=== PATIENT | female | born 1970 | race Caucasian/White ===

== ENCOUNTER 2019-08-01 11:46 | Inpatient (IN) | payer MEDICARE ==
[~2019-08-01] VITALS: Ht 165.1 cm; Wt 135.6 kg
[2019-08-01] MEDS ORDERED: AMLO10TA7 PO (16:23)
[2019-08-01] MEDS ORDERED: METF-960 PO (16:23)
[2019-08-01] MEDS ORDERED: DULO60CA44 PO (16:23)
[2019-08-01] MEDS ORDERED: CLON1TAB13 PO (16:23)
[2019-08-01] MEDS ORDERED: LEVO150 PO (16:23)
[2019-08-01] MEDS ORDERED: ZIPR20CA2 PO (16:23)
[2019-08-01] MEDS ORDERED: ZOLPIDEM TARTRATE 10 MG TABLET PO PRN (16:30)
[2019-08-01] MEDS ORDERED: HALOPERIDOL 5 MG TABLET PO PRN (16:30)
[2019-08-01 18:00] VITALS: BP 138/82
[2019-08-01] MEDS ORDERED: BACITRACIN 28.4 GM OINTMENT TP PRN (18:30)
[2019-08-01] MEDS ORDERED: CloNIDine HCL 0.1 MG TABLET PO PRN (18:30)
[2019-08-01] MEDS ORDERED: OMEPRAZOLE 20 MG CAPSULE PO PRN (18:30)
[2019-08-01] MEDS ORDERED: MAGNESIUM HYDROXIDE SUSPENSION 30 ML UDCUP PO PRN (18:30)
[2019-08-01] MEDS ORDERED: PETROLATUM,WHITE 28 GM JELLY TP PRN (18:30)
[2019-08-01] MEDS ORDERED: BENZOCAINE/MENTHOL LOZENGE MM PRN (18:30)
[2019-08-01] MEDS ORDERED: DOCUSATE SODIUM 100 MG CAPSULE PO PRN (18:30)
[2019-08-01] MEDS ORDERED: ACETAMINOPHEN 325 MG TABLET PO PRN (18:30)
[2019-08-01] MEDS ORDERED: ALBUTEROL SULFATE HFA 90 MCG/PUFF 8 GM INHALER IH PRN (18:30)
[2019-08-02 06:54] VITALS: BP 139/79
[2019-08-02] MEDS: LEVOTHYROXINE SODIUM 150 MCG TABLET PO SCH (06:59)
[2019-08-02] MEDS: MetFORMIN HCL 500 MG TABLET PO SCH (06:59)
[2019-08-02 07:10] LABS: GLUCOMETER DEV NAME(LOC) BV3S.; GLUCOSE,POINT OF CARE 127 MG/DL (70-110)
[2019-08-02 08:30] LABS: BASOPHILS % (AUTO) 1.1 % (0.0-2.0); EOSINOPHILS % (AUTO) 2.1 % (1.0-6.0); HEMATOCRIT 39.1 % (36-46); HEMOGLOBIN 13.1 g/dL (12.0-16.0); LYMPHOCYTES # (AUTO) 0.7 K/uL (1.0-4.8); LYMPHOCYTES % (AUTO) 16.7 % (22.0-44.0); MEAN CORPUSCULAR HEMOGLOBIN 26.4 pg (26.0-34.0); MEAN CORPUSCULAR HGB CONC 33.5 G/dL (31.0-37.0); MEAN CORPUSCULAR VOLUME 79 fL (80-100); MONOCYTES # (AUTO) 0.5 K/uL (0.1-1.0); MONOCYTES % (AUTO) 11.3 % (2.0-9.0); NEUTROPHILS % (AUTO) 68.8 % (40.0-70.0); PLATELET COUNT (AUTO) 389 K/uL (150-450); RED BLOOD CELL COUNT(AUTO) 4.96 MIL/uL (4.00-5.20); RED CELL DISTRIBUTION WIDTH 16.4 % (11.5-14.5)
[2019-08-02] MEDS: LORazepam 2 MG TABLET PO PRN ×2 (08:33→15:08)
[2019-08-02] MEDS: NICOTINE 21 MG/24 HOUR PATCH TD SCH (08:33)
[2019-08-02] MEDS: NYSTATIN 15 GM POWDER BOTTLE TP SCH ×2 (08:33→16:14)
[2019-08-02] MEDS: AmLODIPine BESYLATE 10 MG TABLET PO SCH (08:33)
[2019-08-02 08:44] VITALS: BP 129/64
[2019-08-02 08:46] LABS: HEMOGLOBIN A1C 5.8 % (4.5-6.2)
[2019-08-02 08:52] LABS: ALANINE AMINOTRANSFERASE 32 U/L (12-78); ALKALINE PHOSPHATASE 120 U/L (46-116); ANION GAP 9 mmol/L (8-16); ASPARTATE AMINOTRANSFERASE 23 U/L (15-37); BILIRUBIN,TOTAL 0.3 mg/dL (0.1-1.0); CARBON DIOXIDE 27 mmol/L (22-29); CHLORIDE 99 mmol/L (98-107); CHOL/HDL RATIO 3.5 (3.9-5.7); CHOLESTEROL 133 mg/dL (131-200); CREATININE 0.75 mg/dL (0.60-1.30); FREE T4 (FREE THYROXINE) 0.97 ng/dL (0.76-1.46); GLOMERULAR FILTR. RATE CALC > 60 mL/min (>60); GLUCOSE,RANDOM 135 mg/dL (70-110); HDL CHOLESTEROL 38 mg/dL (40-60); LDL CHOL (CALC.) 66 mg/dL (0-130); POTASSIUM 4.3 mmol/L (3.5-5.1); SODIUM SERUM 135 mmol/L (136-145); THYROID STIMULATING HORMONE 0.79 uIU/mL (0.36-3.74); TOTAL PROTEIN, SERUM 8.3 g/dL (6.4-8.2); TRIGLYCERIDES 145 mg/dL (15-150); UREA NITROGEN, BLOOD 6 mg/dL (7-18)
[2019-08-02] MEDS: LOPERAMIDE HCL 2 MG CAPSULE PO PRN (13:23)
[2019-08-02] MEDS: ONDANSETRON HCL 4 MG TABLET PO PRN (15:08)
[2019-08-02 15:16] LABS: GLUCOMETER DEV NAME(LOC) BV3S.; GLUCOSE,POINT OF CARE 100 MG/DL (70-110)
[2019-08-02 16:10] LABS: GLUCOMETER DEV NAME(LOC) BV3S.; GLUCOSE,POINT OF CARE 90 MG/DL (70-110)
[2019-08-02 16:12] VITALS: BP 135/85
[2019-08-03 03:13] VITALS: BP 138/94
[2019-08-03] MEDS: LORazepam 2 MG TABLET PO PRN ×2 (03:15→08:47)
[2019-08-03 06:26] LABS: GLUCOMETER DEV NAME(LOC) BV3S.; GLUCOSE,POINT OF CARE 117 MG/DL (70-110)
[2019-08-03] MEDS: ONDANSETRON HCL 4 MG TABLET PO PRN (06:30)
[2019-08-03] MEDS: MetFORMIN HCL 500 MG TABLET PO SCH (07:02)
[2019-08-03] MEDS: LEVOTHYROXINE SODIUM 150 MCG TABLET PO SCH (07:03)
[2019-08-03] MEDS: NYSTATIN 15 GM POWDER BOTTLE TP SCH ×2 (08:34→17:33)
[2019-08-03] MEDS: AmLODIPine BESYLATE 10 MG TABLET PO SCH (08:34)
[2019-08-03 08:35] VITALS: BP 130/97
[2019-08-03] MEDS: NICOTINE 21 MG/24 HOUR PATCH TD SCH (08:47)
[2019-08-03] MEDS: LOPERAMIDE HCL 2 MG CAPSULE PO PRN (09:17)
[2019-08-03 16:16] VITALS: BP 110/58
[2019-08-03 16:41] LABS: GLUCOMETER DEV NAME(LOC) BV3S.; GLUCOSE,POINT OF CARE 101 MG/DL (70-110)
[2019-08-03 18:49] VITALS: BP 125/68
[2019-08-03] MEDS: IBUPROFEN 600 MG TABLET PO PRN (18:49)
[2019-08-03] MEDS: ClonazePAM 1 MG TABLET PO SCH (21:23)
[2019-08-03] MEDS: ZIPRASIDONE HCL 60 MG CAPSULE PO SCH (21:26)
[2019-08-03] MEDS: PRAZOSIN HCL 2 MG CAPSULE PO SCH (21:26)
[2019-08-04 05:38] VITALS: BP 118/71
[2019-08-04 06:26] LABS: GLUCOMETER DEV NAME(LOC) BV3S.; GLUCOSE,POINT OF CARE 167 MG/DL (70-110)
[2019-08-04] MEDS: LEVOTHYROXINE SODIUM 50 MCG TABLET PO SCH (07:02)
[2019-08-04] MEDS: ZIPRASIDONE HCL 60 MG CAPSULE PO SCH ×2 (07:02→16:39)
[2019-08-04] MEDS: MetFORMIN HCL 500 MG TABLET PO SCH (07:02)
[2019-08-04 08:06] VITALS: BP 121/73
[2019-08-04] MEDS: NYSTATIN 15 GM POWDER BOTTLE TP SCH ×2 (09:05→16:39)
[2019-08-04] MEDS: AmLODIPine BESYLATE 10 MG TABLET PO SCH (09:05)
[2019-08-04] MEDS: NICOTINE 21 MG/24 HOUR PATCH TD SCH (09:05)
[2019-08-04] MEDS: DULoxetine HCL 60 MG CAPSULE PO SCH (11:18)
[2019-08-04] MEDS: LORazepam 2 MG TABLET PO PRN (12:41)
[2019-08-04] MEDS: MAG HYDROX/AL HYDROX/SIMETH ES 30 ML SUSPENSION UDCUP PO PRN (12:48)
[2019-08-04] MEDS ORDERED: INSULIN LISPRO 100 UNITS/ML SQ PRN (14:30)
[2019-08-04] MEDS ORDERED: GLUCAGON,HUMAN RECOMBINANT 1 MG VIAL IM PRN (14:30)
[2019-08-04 16:05] VITALS: BP 138/86
[2019-08-04 17:01] LABS: GLUCOMETER DEV NAME(LOC) BV3S.; GLUCOSE,POINT OF CARE 121 MG/DL (70-110)
[2019-08-04] MEDS: PRAZOSIN HCL 2 MG CAPSULE PO SCH (20:07)
[2019-08-04] MEDS: ClonazePAM 1 MG TABLET PO SCH (20:07)
[2019-08-05 06:16] LABS: GLUCOMETER DEV NAME(LOC) BV3S.; GLUCOSE,POINT OF CARE 123 MG/DL (70-110)
[2019-08-05] MEDS: MetFORMIN HCL 500 MG TABLET PO SCH (06:48)
[2019-08-05] MEDS: LEVOTHYROXINE SODIUM 50 MCG TABLET PO SCH (06:48)
[2019-08-05] MEDS: ZIPRASIDONE HCL 60 MG CAPSULE PO SCH ×2 (06:48→17:02)
[2019-08-05 07:11] VITALS: BP 125/68
[2019-08-05 08:27] VITALS: BP 116/16
[2019-08-05] MEDS: DULoxetine HCL 60 MG CAPSULE PO SCH (09:00)
[2019-08-05] MEDS: NICOTINE 21 MG/24 HOUR PATCH TD SCH (09:00)
[2019-08-05] MEDS: NYSTATIN 15 GM POWDER BOTTLE TP SCH ×2 (09:00→17:02)
[2019-08-05] MEDS: AmLODIPine BESYLATE 10 MG TABLET PO SCH (09:00)
[2019-08-05] MEDS: LORazepam 2 MG TABLET PO PRN (09:00)
[2019-08-05] MEDS ORDERED: DULoxetine HCL 60 MG CAPSULE PO SCH (09:00)
[2019-08-05 17:11] LABS: GLUCOMETER DEV NAME(LOC) BV3S.; GLUCOSE,POINT OF CARE 86 MG/DL (70-110)
[2019-08-05] MEDS: LOPERAMIDE HCL 2 MG CAPSULE PO PRN (17:12)
[2019-08-05 18:46] VITALS: BP 138/77
[2019-08-05] MEDS: IBUPROFEN 600 MG TABLET PO PRN (18:57)
[2019-08-05] MEDS: PRAZOSIN HCL 2 MG CAPSULE PO SCH (20:26)
[2019-08-05] MEDS: ClonazePAM 1 MG TABLET PO SCH (20:26)
[2019-08-05] MEDS: MAG HYDROX/AL HYDROX/SIMETH ES 30 ML SUSPENSION UDCUP PO PRN (21:20)
[2019-08-06 06:18] LABS: GLUCOMETER DEV NAME(LOC) BV3S.; GLUCOSE,POINT OF CARE 101 MG/DL (70-110)
[2019-08-06] MEDS: LEVOTHYROXINE SODIUM 50 MCG TABLET PO SCH (06:45)
[2019-08-06] MEDS: MetFORMIN HCL 500 MG TABLET PO SCH (06:45)
[2019-08-06] MEDS: ZIPRASIDONE HCL 60 MG CAPSULE PO SCH ×2 (06:45→16:30)
[2019-08-06 07:02] VITALS: BP 142/78
[2019-08-06 08:22] VITALS: BP 113/55
[2019-08-06] MEDS: AmLODIPine BESYLATE 10 MG TABLET PO SCH (08:47)
[2019-08-06] MEDS: NYSTATIN 15 GM POWDER BOTTLE TP SCH ×2 (08:47→16:30)
[2019-08-06] MEDS: DULoxetine HCL 60 MG CAPSULE PO SCH (08:47)
[2019-08-06] MEDS: NICOTINE 21 MG/24 HOUR PATCH TD SCH (08:48)
[2019-08-06] MEDS: LORazepam 2 MG TABLET PO PRN (12:40)
[2019-08-06] MEDS: IBUPROFEN 600 MG TABLET PO PRN (15:24)
[2019-08-06 16:14] VITALS: BP 118/57
[2019-08-06 16:42] LABS: GLUCOMETER DEV NAME(LOC) BV3S.; GLUCOSE,POINT OF CARE 114 MG/DL (70-110)
[2019-08-06] MEDS: ClonazePAM 1 MG TABLET PO SCH (20:24)
[2019-08-06] MEDS: PRAZOSIN HCL 2 MG CAPSULE PO SCH (20:25)
[2019-08-07 02:33] VITALS: BP 131/91
[2019-08-07 06:37] LABS: GLUCOMETER DEV NAME(LOC) BV3S.; GLUCOSE,POINT OF CARE 89 MG/DL (70-110)
[2019-08-07] MEDS: LEVOTHYROXINE SODIUM 50 MCG TABLET PO SCH (06:37)
[2019-08-07] MEDS: ZIPRASIDONE HCL 60 MG CAPSULE PO SCH ×2 (07:03→16:12)
[2019-08-07] MEDS: MetFORMIN HCL 500 MG TABLET PO SCH (07:03)
[2019-08-07 08:22] VITALS: BP 111/64
[2019-08-07] MEDS: DULoxetine HCL 60 MG CAPSULE PO SCH (08:36)
[2019-08-07] MEDS: NICOTINE 21 MG/24 HOUR PATCH TD SCH (08:36)
[2019-08-07] MEDS: AmLODIPine BESYLATE 10 MG TABLET PO SCH (08:36)
[2019-08-07] MEDS: NYSTATIN 15 GM POWDER BOTTLE TP SCH ×2 (08:37→16:12)
[2019-08-07 16:19] VITALS: BP 114/63
[2019-08-07 17:07] LABS: GLUCOMETER DEV NAME(LOC) BV3S.; GLUCOSE,POINT OF CARE 74 MG/DL (70-110)
[2019-08-07] MEDS: ClonazePAM 1 MG TABLET PO SCH (20:51)
[2019-08-07] MEDS: PRAZOSIN HCL 2 MG CAPSULE PO SCH (20:51)
[2019-08-08] MEDS: MAG HYDROX/AL HYDROX/SIMETH ES 30 ML SUSPENSION UDCUP PO PRN (00:03)
[2019-08-08 06:26] VITALS: BP 142/89
[2019-08-08 06:46] LABS: GLUCOMETER DEV NAME(LOC) BV3S.; GLUCOSE,POINT OF CARE 116 MG/DL (70-110)
[2019-08-08] MEDS: ZIPRASIDONE HCL 60 MG CAPSULE PO SCH ×2 (07:11→21:58)
[2019-08-08] MEDS: LEVOTHYROXINE SODIUM 50 MCG TABLET PO SCH (07:11)
[2019-08-08] MEDS: MetFORMIN HCL 500 MG TABLET PO SCH (07:11)
[2019-08-08 08:24] VITALS: BP 121/63
[2019-08-08] MEDS: NICOTINE 21 MG/24 HOUR PATCH TD SCH (08:27)
[2019-08-08] MEDS: AmLODIPine BESYLATE 10 MG TABLET PO SCH (08:27)
[2019-08-08] MEDS: DULoxetine HCL 60 MG CAPSULE PO SCH (08:27)
[2019-08-08] MEDS: NYSTATIN 15 GM POWDER BOTTLE TP SCH ×2 (08:28→16:57)
[2019-08-08 17:47] LABS: GLUCOMETER DEV NAME(LOC) BV3S.; GLUCOSE,POINT OF CARE 96 MG/DL (70-110)
[2019-08-08 19:34] VITALS: BP 124/58
[2019-08-08] MEDS: PRAZOSIN HCL 2 MG CAPSULE PO SCH (20:23)
[2019-08-08] MEDS: ClonazePAM 1 MG TABLET PO SCH (20:23)
[2019-08-08 22:25] VITALS: BP 112/61
[2019-08-08] MEDS: IBUPROFEN 600 MG TABLET PO PRN (22:31)
[2019-08-09 06:31] LABS: GLUCOMETER DEV NAME(LOC) BV3S.; GLUCOSE,POINT OF CARE 103 MG/DL (70-110)
[2019-08-09] MEDS: MetFORMIN HCL 500 MG TABLET PO SCH (06:34)
[2019-08-09] MEDS: ZIPRASIDONE HCL 60 MG CAPSULE PO SCH ×2 (06:34→17:25)
[2019-08-09] MEDS: LEVOTHYROXINE SODIUM 50 MCG TABLET PO SCH (06:34)
[2019-08-09 06:36] VITALS: BP 103/65
[2019-08-09] MEDS: AmLODIPine BESYLATE 10 MG TABLET PO SCH (08:28)
[2019-08-09] MEDS: DULoxetine HCL 60 MG CAPSULE PO SCH (08:28)
[2019-08-09 08:41] VITALS: BP 127/73
[2019-08-09] MEDS: NICOTINE 21 MG/24 HOUR PATCH TD SCH (09:00)
[2019-08-09] MEDS: MAG HYDROX/AL HYDROX/SIMETH ES 30 ML SUSPENSION UDCUP PO PRN (10:01)
[2019-08-09 11:31] LABS: GLUCOMETER DEV NAME(LOC) BV3S.; GLUCOSE,POINT OF CARE 104 MG/DL (70-110)
[2019-08-09] MEDS: NYSTATIN 15 GM POWDER BOTTLE TP SCH ×2 (13:17→17:25)
[2019-08-09 16:20] VITALS: BP 122/67
[2019-08-09 17:06] LABS: GLUCOMETER DEV NAME(LOC) BV3S.; GLUCOSE,POINT OF CARE 105 MG/DL (70-110)
[2019-08-09] MEDS: ClonazePAM 1 MG TABLET PO SCH (20:19)
[2019-08-09] MEDS: PRAZOSIN HCL 2 MG CAPSULE PO SCH (20:19)
[2019-08-10] MEDS: LEVOTHYROXINE SODIUM 50 MCG TABLET PO SCH (06:38)
[2019-08-10] MEDS: ZIPRASIDONE HCL 60 MG CAPSULE PO SCH ×2 (06:38→16:48)
[2019-08-10] MEDS: MetFORMIN HCL 500 MG TABLET PO SCH (06:38)
[2019-08-10 06:41] LABS: GLUCOMETER DEV NAME(LOC) BV3S.; GLUCOSE,POINT OF CARE 124 MG/DL (70-110)
[2019-08-10 07:19] VITALS: BP 136/76
[2019-08-10 08:38] VITALS: BP 112/66
[2019-08-10] MEDS: AmLODIPine BESYLATE 10 MG TABLET PO SCH (09:02)
[2019-08-10] MEDS: NICOTINE 21 MG/24 HOUR PATCH TD SCH (09:02)
[2019-08-10] MEDS: DULoxetine HCL 60 MG CAPSULE PO SCH (09:02)
[2019-08-10] MEDS: NYSTATIN 15 GM POWDER BOTTLE TP SCH ×2 (09:02→16:23)
[2019-08-10 16:03] VITALS: BP 108/69
[2019-08-10 16:46] LABS: GLUCOMETER DEV NAME(LOC) BV3S.; GLUCOSE,POINT OF CARE 76 MG/DL (70-110)
[2019-08-10] MEDS: MAG HYDROX/AL HYDROX/SIMETH ES 30 ML SUSPENSION UDCUP PO PRN (18:47)
[2019-08-10] MEDS: ClonazePAM 1 MG TABLET PO SCH (20:27)
[2019-08-10] MEDS: PRAZOSIN HCL 2 MG CAPSULE PO SCH (20:27)
[2019-08-11 01:02] VITALS: BP 110/68
[2019-08-11 06:41] LABS: GLUCOMETER DEV NAME(LOC) BV3S.; GLUCOSE,POINT OF CARE 103 MG/DL (70-110)
[2019-08-11] MEDS: MetFORMIN HCL 500 MG TABLET PO SCH (06:42)
[2019-08-11] MEDS: LEVOTHYROXINE SODIUM 50 MCG TABLET PO SCH (06:42)
[2019-08-11] MEDS: ZIPRASIDONE HCL 60 MG CAPSULE PO SCH ×2 (06:42→16:11)
[2019-08-11 08:17] VITALS: BP 109/51
[2019-08-11] MEDS: DULoxetine HCL 60 MG CAPSULE PO SCH (08:24)
[2019-08-11] MEDS: AmLODIPine BESYLATE 10 MG TABLET PO SCH (08:24)
[2019-08-11] MEDS: NICOTINE 21 MG/24 HOUR PATCH TD SCH (08:25)
[2019-08-11] MEDS: NYSTATIN 15 GM POWDER BOTTLE TP SCH ×2 (08:30→16:15)
[2019-08-11] MEDS ORDERED: SERTRALINE HCL 100 MG TABLET PO SCH (09:00)
[2019-08-11] MEDS ORDERED: PRAZ2 PO (15:26)
[2019-08-11] MEDS ORDERED: NYST15PO3 TP (15:27)
[2019-08-11 16:02] VITALS: BP 133/63
[2019-08-11 16:10] LABS: GLUCOMETER DEV NAME(LOC) BV3S.; GLUCOSE,POINT OF CARE 75 MG/DL (70-110)
== END 2019-08-11 17:20 | DRG 885 ==
LOC: B3A 16:39
PROVIDERS: ADMIT Psychiatry & Neurology Psychiatry; ATTEND Psychiatry & Neurology Psychiatry
DX: F25.9 Schizoaffective disorder, unspecified (principal); R45.851 Suicidal ideations; E03.9 Hypothyroidism, unspecified; E11.9 Type 2 diabetes mellitus without complications; E66.9 Obesity, unspecified; F32.9 Major depressive disorder, single episode, unspecified; F41.9 Anxiety disorder, unspecified; G47.00 Insomnia, unspecified; I10 Essential (primary) hypertension; K21.9 Gastro-esophageal reflux disease without esophagitis; Z59.0 Homelessness
CPT/HCPCS: 83036; 84439; 84443; 87081; Q0162